=== PATIENT | male | born 1970 | race Caucasian/White ===

== ENCOUNTER → 2018-06-12 | Outpatient (CLI) | payer OTHER ==
--- NOTE | 2018-06-12 17:38 | Diagnostic Imaging Report ---
History: Back pain Comparison studies: None Technique: Sagittal T1, T2 and IR, coronal T2, axial T2 with and without fat sat and axial spin density oblique Intravenous contrast: None Suboptimal evaluation particularly due to motion artifacts in the axial PD sequences. Findings: Number of lumbar vertebral bodies: 5 . Soft tissues: No T2 hyperintense inflammatory changes . Paraspinal muscles: No signal abnormalities. Well-preserved. No atrophic changes . Lower thoracic cord: Normal in size and signal. The tip of the conus is at L1. Cauda equina:No masses. No arachnoiditis . Vertebrae: Normal in height and signal intensity. No fractures, infection or neoplasm. Degenerative changes: L1-L2 No abnormalities. L2-L3: Asymmetric right-sided disc bulge with thecal sac effacement and no central canal or neural foraminal encroachment. L3-L4: No abnormalities. L4-L5: Mild degenerative disc disease, disc bulge with superimposed 4 mm central disc protrusion with thecal sac effacement, without significant canal stenosis. There is a tiny posterior annular fissure. No foraminal stenosis. L5-S1: No abnormalities. Partially visualized sacrum: None . IMPRESSION: 1. Degenerative disc disease at L2-L3 and L4-L5. 2. No significant canal or foraminal stenosis. A preliminary report was given by Neuroradiology fellow Dr. Reed at 5:38 PM on 06/12/2018. I have reviewed the images and agree with findings in the preliminary report. Signed by: Dr. Indira Weber M.D. on 06/12/2018 8:38 PM
== END ==
LOC: MRI 15:37
PROVIDERS: ATTEND Family Medicine
DX: S39.012A Strain of muscle, fascia and tendon of lower back, initial encounter (principal)
CPT/HCPCS: 72148